=== PATIENT | male | born 1960 | race Caucasian/White ===

== ENCOUNTER → 2016-08-16 | Outpatient (CLI) | payer BC ==
[~2016-08-16] MED LIST: HYDR-5688 PO; NAPR250T2 PO; TEST1INJ2 INJ
--- NOTE | 2016-08-16 11:56 | DIAGNOSTIC IMAGING REPORT ---
C-SPINE ROUTINE 4 OR 5 VIEWS CLINICAL HISTORY: Cervical pain. COMPARISON STUDY: No previous studies for comparison. FINDINGS: Visualization of the cervical spine is adequate. There is mild straightening of the cervical spine. Moderate disc space narrowing and osteophytosis is noted at C5-C6 and C6-C7. There is no fracture or suspicious lesion. There is multilevel bony neural foraminal narrowing. IMPRESSION: 1. No cervical spine fracture. 2. Moderate degenerative disc disease at C5-C6 and C6-C7 with moderate multilevel facet arthrosis. Electronically signed by: Jose Hurley M.D. 08/16/2016 11:54 AM Dictated Date/Time: 08/16/2016 11:53 AM
--- NOTE | 2016-08-16 11:57 | DIAGNOSTIC IMAGING REPORT ---
SI JOINTS 3 OR MORE VIEWS CLINICAL HISTORY: Sacroiliac joint pain. COMPARISON STUDY: No previous studies for comparison. FINDINGS: The sacroiliac joints are intact without evidence for ankylosis. No fracture or suspicious lesion is identified on this exam. Joint spaces are preserved. IMPRESSION: No significant abnormality of the sacroiliac joints. Electronically signed by: Jose Hurley M.D. 08/16/2016 11:56 AM Dictated Date/Time: 08/16/2016 11:55 AM
--- NOTE | 2016-08-16 11:57 | DIAGNOSTIC IMAGING REPORT ---
L-SPINE MIN 4 VIEWS ROUTINE CLINICAL HISTORY: Low back pain. COMPARISON: None FINDINGS: Vertebral body heights are maintained. No fracture or suspicious lesion is present. There is moderate multilevel degenerative disc disease and facet arthrosis of the lumbar spine. IMPRESSION: 1. No lumbar spine fracture or subluxation. 2. Moderate multilevel degenerative disc disease and facet arthrosis of the lumbar spine. Electronically signed by: Jose Hurley M.D. 08/16/2016 11:55 AM Dictated Date/Time: 08/16/2016 11:54 AM
== END | disposition home or self-care (01) ==
LOC: C.RAD 11:08
DX: S16.1XXA Strain of muscle, fascia and tendon at neck level, initial encounter (principal); S39.012A Strain of muscle, fascia and tendon of lower back, initial encounter; X58.XXXA Exposure to other specified factors, initial encounter; M50.322 Other cervical disc degeneration at C5-C6 level; M50.323 Other cervical disc degeneration at C6-C7 level; M51.36 Other intervertebral disc degeneration, lumbar region

== ENCOUNTER → 2016-12-08 | Outpatient (CLI) | payer BC ==
[~2016-12-08] MED LIST changes: -HYDR-5688 PO; +NAPR1TAB48 PO; -NAPR250T2 PO
[2016-12-08 10:03] LABS: CALCIUM 8.7 mg/dl (8.5-10.1)
[2016-12-08 10:09] LABS: ALT/SGPT 48 U/L (12-78); AST/SGOT 25 U/L (15-37); BLOOD UREA NITROGEN 9 mg/dl (7-18); BUN/CREATININE RATIO 9.6 (10-20); C-REACTIVE PROTEIN < 0.29 mg/dl (0-0.29); CARBON DIOXIDE 27 mmol/L (21-32); CHLORIDE 108 mmol/L (98-107); CHOLESTEROL 95 mg/dl (0-200); CREATININE 0.96 mg/dl (0.60-1.40); GLUCOSE 108 mg/dl (70-99); POTASSIUM 3.9 mmol/L (3.5-5.1); SODIUM 143 mmol/L (136-145); TRIGLYCERIDES 93 mg/dl (0-150); VERY LOW DENSITY LIPOPROT CALC 19 mg/dl
[2016-12-08 10:19] LABS: CHOLESTEROL/HDL RATIO 2.4; HDL CHOLESTEROL 39 mg/dl
== END ==
LOC: C.LAB1850 08:29
DX: E29.1 Testicular hypofunction (principal); E78.5 Hyperlipidemia, unspecified; E88.81 Metabolic syndrome and other insulin resistance

== ENCOUNTER → 2017-05-16 | Outpatient (CLI) | payer BC ==
[~2017-05-16] MED LIST changes: -NAPR1TAB48 PO; +NAPR250T2 PO
== END | disposition home or self-care (01) ==
LOC: C.PATHSPEC 16:45
PROVIDERS: ATTEND Dermatology
DX: B07.9 Viral wart, unspecified (principal)

== ENCOUNTER → 2017-05-16 | Outpatient (CLI) | payer BC | END | disposition home or self-care (01) | LOC: C.LABSPEC 16:39 | PROVIDERS: ATTEND Physician Assistant | DX: Z86.018 Personal history of other benign neoplasm (principal); L72.0 Epidermal cyst ==